=== PATIENT | male | born 1945 | race Caucasian/White ===

== ENCOUNTER → 2017-03-06 | Outpatient (CLI) | payer MEDICARE, OTHER ==
[~2017-03-06] MED LIST: ALPR.5 PO; Cialis5 MG; IBUP800 PO; LEVSOD50 PO; Omeprazole20 M1 PO
== END | disposition home or self-care (01) ==
LOC: PLD 07:24 → LAB SHORT 07:24
DX: D48.5 Neoplasm of uncertain behavior of skin (principal)
CPT/HCPCS: 88305

== ENCOUNTER → 2022-05-13 | Outpatient (CLI) | payer MEDICARE ==
[~2022-05-13] MED LIST changes: +LEVSOD75 PO
== END ==
LOC: LAB 10:43 → LAB SHORT 10:43
DX: R31.9 Hematuria, unspecified (principal)
CPT/HCPCS: 87086

== ENCOUNTER 2022-12-22 07:59 | Day surgery (SDC) | payer MEDICARE ==
[~2022-12-22] VITALS: Ht 175.3 cm; Wt 80.1 kg
[~2022-12-22 07:59] MED LIST changes: +OMEP20ER PO
[2022-12-22 10:15] VITALS: BP 107/68
--- NOTE | 2022-12-22 10:17 | NUR ---
12/22/22 Enmanuel7 Carla Oliver IV DC'D. CATH INTACT. PT TOLERATED WELL. COBAN/GAUZE IN PLACE
== END 2022-12-22 10:17 | disposition home or self-care (01) ==
LOC: ORSCSDS 07:59
PROVIDERS: Internal Medicine Gastroenterology
PROC: 0DBL8ZX Excision of Transverse Colon, Via Natural or Artificial Opening Endoscopic, Diagnostic (ICD-10-PCS; principal; 2022-12-22 09:30)
PROC: 0DBK8ZX Excision of Ascending Colon, Via Natural or Artificial Opening Endoscopic, Diagnostic (ICD-10-PCS; principal; 2022-12-22 09:30)
DX: Z12.11 Encounter for screening for malignant neoplasm of colon (principal); Z86.010 Personal history of colon polyps; D12.2 Benign neoplasm of ascending colon; D12.3 Benign neoplasm of transverse colon; K64.4 Residual hemorrhoidal skin tags; Z80.0 Family history of malignant neoplasm of digestive organs; K57.30 Diverticulosis of large intestine without perforation or abscess without bleeding; Z79.899 Other long term (current) drug therapy
CPT/HCPCS: 88305; J2704; J7120